=== PATIENT | female | born 1995 | race American Indian/Alaskan Native ===

== ENCOUNTER 2016-12-06 13:51 | Inpatient (IN) | payer BC, MEDICAID ==
[2016-12-06] MEDS ORDERED: LACTATED RINGERS 1,000 ML IV SCH ×2 (16:00→18:00)
[2016-12-06 16:27] LABS: Basophils % (Auto) 0.3 % (0.0-1.8); Eosinophils % (Auto) 0.7 % (0.0-4.3); Hematocrit 37.1 % (30.3-42.9); Hemoglobin 12.2 gm/dl (10.1-14.3); Mean Corpuscular HGB Conc 33 % (30-34); Mean Corpuscular Hemoglobin 28 pg (28-32); Mean Corpuscular Volume 84 fl (79-97); Platelet Count 144 K/mm3 (140-440); Red Cell Distribution Width 14.2 % (13.2-15.2)
[2016-12-06] MEDS ORDERED: PITOCin/NS 30 UNIT/500ML 30 UNITS/500 ML BAG IV SCH (17:00)
[2016-12-06] MEDS ORDERED: PITOCin/NS 20 UNIT/1000ML DRIP 20 UNITS/1,000 ML BAG IV SCH ×2 (17:00→18:00)
--- NOTE | 2016-12-06 17:21 | History and Physical Report ---
History of Present Illness Date of examination: 12/06/16 Date of admission: 12/06/16 13:51 Chief complaint: My water broke History of present illness: Early entry to care, course complicated by a breast mass and anemia. Past History Past Medical History: no pertinent history Past Surgical History: no surgical history [employer] History: herpes Family/Genetic History: none Social history: no significant social history, single - Obstetrical History Expected Date of Delivery: 12/24/16 Actual Gestation: 37 Week(s) 3 Day(s) : 3 Para: 1 Spontaneous Abortions: 1 Number of Living Children: 1 #1 Gender: Male year: 2[age][birth year] Birthweight: 2.693 kg Method of Delivery: Vaginal Gestational age at delivery: 37 Complications: none Medications and Allergies Allergies Allergy/AdvReac Type Severity Reaction Status Date / Time No Known Allergies Allergy Unverified 12/06/16 15:35 Home Medications Medication Instructions Recorded Confirmed Last Taken Type Ferrous Sulfate [Feosol] 325 mg PO BID 12/06/16 12/06/16 12/05/16 History Vitamins 1 tab PO DAILY 12/06/16 12/06/16 12/05/16 History valACYclovir [Valtrex] 500 mg PO BID 12/06/16 12/06/16 12/05/16 History Active Meds: Active Medications Butorphanol Tartrate (Stadol) 2 mg IV Q2H PRN PRN Reason: Labor Pain Lactated Ringer's (Lactated Ringers) 1,000 mls @ 125 mls/hr IV DIRECT REYNALDO Last Admin: 12/06/16 16:32 Dose: 125 mls/hr Oxytocin/Sodium Chloride (Pitocin/Ns 20 Unit/1000ml Drip) 20 units in 1,000 mls @ 0 mls/hr IV DIRECT REYNALDO PRN Reason: As Directed Oxytocin/Sodium Chloride (Pitocin/Ns 30 Unit/500ml) 30 units in 500 mls @ 2 mls /hr IV TITR REYNALDO PRN Reason: Protocol Influenza Virus Vaccine Quadrival (Fluarix Quad 5131-1124(36 Mos+)) 0.5 ml IM .ONCE ONE Stop: 12/07/16 12:01 Review of Systems All systems: negative - Vital Signs Vital signs: Vital Signs Pulse BP Pulse Ox 92 H 125/72 100 12/06/16 14:40 12/06/16 14:40 12/06/16 14:40 Temp Pulse Resp BP Pulse Ox 98.8 F 87 18 120/65 100 12/06/16 16:25 12/06/16 17:11 12/06/16 16:25 12/06/16 17:06 12/06/16 17:11 - Physical Exam Breasts: Positive: normal Cardiovascular: Regular rate Lungs: Positive: Clear to auscultation Abdomen: Positive: normal appearance, soft, normal bowel sounds Genitourinary (Female): Positive: normal external genitalia, normal perenium Vagina: Positive: normal moisture Uterus: Positive: enlarged Anus/Rectum: Positive: normal perianal skin Extremities: Positive: normal - Obstetrical FHR: category 1 Uterine Contraction Monitor Mode: External Cervical Dilatation: 3 (large amount of clear fluid pooling; forebag palpated) Cervical Effacement Percentage: 60 station: -3 Uterine Contraction Pattern: Irregular Uterine Tone Measurement Phase: Resting Uterine Contraction Intensity: Mild Results Result Diagrams: 12/06/16 15:10 Abnormal lab results 12/06/16 Range/Units 15:10 [place] % (Auto) 7.7 H (0.0-7.3) % Seg Neutrophils % 71.0 H (40.0-70.0) % All other labs normal. Assessment and Plan A: IUP @ 37 3/7 Weeks Category I Tracing PROM GBS Negative P: Follow Routine Pospartum Orders Pitocin Induction
[2016-12-06] MEDS ORDERED: XYLOCAINE 2% INFILTRATI ONE (17:25)
[2016-12-06] MEDS ORDERED: BRETHINE SUB-Q PRN (17:25)
[2016-12-06] MEDS ORDERED: ePHEDrine SULFATE IV PRN ×2 (17:25→20:56)
[2016-12-06] MEDS ORDERED: NARCAN 0.4 MG/1 ML IV PRN (17:25)
[2016-12-06] MEDS ORDERED: MINERAL OIL PO PRN (17:25)
[2016-12-06] MEDS ORDERED: ZOFRAN IV PRN (17:25)
[2016-12-06] MEDS ORDERED: BRETHINE IVP PRN (17:25)
[2016-12-06] MEDS: STADOL IV PRN ×2 (18:01→20:18)
--- NOTE | 2016-12-06 20:55 | Anesthesia Consultation ---
Anesthesia Consult and Med Hx Date of service: 12/06/16 - Airway Anesthetic Teeth Evaluation: Good ROM Head & Neck: Adequate Mental/Hyoid Distance: Adequate Mallampati Class: Class II Intubation Access Assessment: Good - Pulmonary Exam CTA: Yes - Cardiac Exam Cardiac Exam: No Murmur - Pre-Operative Health Status ASA Pre-Surgery Classification: ASA2 Proposed Anesthetic Plan: Epidural - Pulmonary Hx Asthma: No COPD: No Hx Pneumonia: No - Cardiovascular System Hx Hypertension: No - Central Nervous System Hx Seizures: No Hx Psychiatric Problems: No - Endocrine Hx Renal Disease: No Hx End Stage Renal Disease: No Hx Hypothyroidism: No Hx Hyperthyroidism: No - Hematic Hx Anemia: Yes (on Iron BID) Hx Sickle Cell Disease: No - Other Systems Hx Alcohol Use: No
[2016-12-06] MEDS ORDERED: NARCAN 2 MG/2 ML IV PRN (20:56)
[2016-12-06] MEDS ORDERED: fentaNYL-BUPIV 2 MCG/ML-0.125% 200 MCG/100 ML BAG EPIDURAL SCH (21:00)
--- NOTE | 2016-12-06 22:27 | Procedure Note ---
OB Delivery Note - Delivery Date of Delivery: 12/06/16 (2206) Surgeon: BRANDON HENAO Estimated blood loss: 200cc - Vaginal Delivery presentation: vertex Delivery position: OA Intrapartum events: mult.variable deceleratio Delivery induction: oxytocin Delivery augmentation: pitocin Delivery monitor: internal FHT, internal uterine Route of delivery: Delivery placenta: spontaneous Delivery cord: 3 umbilical vessels Episiotomy: none Delivery laceration: none Anesthesia: epidural Delivery comments: of a live 5'9 male over a intact perineum under epidural anesthesia with Apgars of 6 and 9 at 2206 on 12/06/2016. Very tight nuchal cords x3, double clamped and cut on the perineum prior to delivery of the anterior shoulder. Spontaneous delivery of placenta complete and intact with Garzon side presenting at 2209. Fundus is firm and midline located 4 below the U. Lochia is scant. - Infant A at 1 minute: 6 at 5 minutes: 9 Gender: Male (5'9)
[2016-12-06] MEDS ORDERED: BENADRYL PO PRN (22:28)
[2016-12-06] MEDS ORDERED: MILK OF MAGNESIA PO PRN (22:28)
[2016-12-06] MEDS ORDERED: LANSINOH TP PRN (22:28)
[2016-12-06] MEDS ORDERED: PHENERGAN PO PRN (22:28)
[2016-12-06] MEDS ORDERED: TUCKS PAD TP PRN (22:28)
[2016-12-06] MEDS ORDERED: DULCOLAX PR PRN (22:28)
[2016-12-06] MEDS ORDERED: SODIUM CHLORIDE FLUSH SYRINGE 10 ML IV NR (23:00)
[2016-12-06] MEDS ORDERED: PITOCin/NS 20 UNIT/1000ML DRIP 20,000 MILLIUNITS/1,000 ML BAG IV ONE (23:56)
[2016-12-07] MEDS: MOTRIN PO SCH ×4 (00:37→23:44)
--- NOTE | 2016-12-07 10:28 | Progress Note ---
Assessment and Plan A: PP Day #1 Stable P: Follow Routine Orders D/C home in the AM Plans Nexplanon for PP Contraception RTO in 6 Weeks Subjective - Subjective Date of service: 12/07/16 Interval history: Early entry to care, course complicated by a breast mass and anemia. Patient reports: appetite normal, voiding normally, pain well controlled, flatus , ambulating normally : doing well, bottle feeding Objective - Vital Signs Latest vital signs: Vital Signs Temp Pulse Resp BP BP Pulse Ox 12/07/16 08:05 98.5 F 83 19 113/63 12/07/16 05:00 18 12/07/16 04:20 98.6 F 80 18 114/56 12/07/16 00:37 16 12/07/16 00:19 98.5 F 78 18 148/92 148/92 12/06/16 23:36 80 154/91 12/06/16 23:21 86 151/97 12/06/16 23:06 73 147/91 12/06/16 23:01 92 H 81 L 12/06/16 22:59 90 100 12/06/16 22:54 92 H 100 12/06/16 22:53 87 0 L 12/06/16 22:51 86 145/88 12/06/16 22:49 89 97 12/06/16 22:45 97.9 F 90 18 140/88 100 12/06/16 22:36 92 H 140/88 12/06/16 22:30 85 100 12/06/16 22:25 88 59 L 12/06/16 21:39 92 H 156/83 12/06/16 21:34 75 143/72 12/06/16 21:32 77 148/84 12/06/16 21:31 75 146/78 12/06/16 21:29 78 147/85 12/06/16 21:27 73 143/79 12/06/16 21:25 82 142/73 12/06/16 21:23 79 146/65 12/06/16 21:21 78 134/74 12/06/16 21:19 82 123/55 12/06/16 21:17 75 134/70 12/06/16 21:10 82 143/79 12/06/16 21:08 85 136/79 12/06/16 21:06 84 142/80 12/06/16 21:05 74 146/88 12/06/16 21:01 84 149/81 12/06/16 20:58 82 151/90 12/06/16 20:55 90 139/88 12/06/16 20:34 81 100 12/06/16 20:29 93 H 100 12/06/16 20:25 80 145/81 12/06/16 20:24 80 100 12/06/16 20:22 85 0 L 12/06/16 20:19 93 H 100 12/06/16 20:14 78 100 12/06/16 20:09 83 100 12/06/16 20:04 80 100 12/06/16 19:59 79 100 12/06/16 19:54 78 100 12/06/16 19:49 87 100 12/06/16 19:44 78 100 12/06/16 19:39 84 100 12/06/16 19:34 87 100 12/06/16 19:25 95 H 100 12/06/16 19:24 76 128/72 12/06/16 19:20 90 100 12/06/16 19:19 98.6 F 82 18 128/72 100 12/06/16 19:15 83 100 12/06/16 19:10 87 100 12/06/16 19:05 83 100 12/06/16 18:47 86 99 12/06/16 17:25 84 100 12/06/16 17:20 88 99 12/06/16 17:11 87 100 12/06/16 17:06 89 120/65 100 12/06/16 17:01 95 H 100 12/06/16 16:56 83 100 12/06/16 16:51 92 H 128/73 100 12/06/16 16:46 91 H 100 12/06/16 16:41 94 H 100 12/06/16 16:36 93 H 119/63 100 12/06/16 16:31 100 H 100 12/06/16 16:29 96 H 132/72 12/06/16 16:26 87 100 12/06/16 16:25 98.8 F 96 H 18 132/72 100 12/06/16 16:21 95 H 100 12/06/16 16:20 96 H 131/70 12/06/16 16:16 101 H 100 12/06/16 16:11 84 100 12/06/16 16:06 86 100 12/06/16 16:05 86 126/69 12/06/16 16:01 85 83 L 12/06/16 16:00 82 82 L 12/06/16 15:52 85 136/77 12/06/16 15:49 91 H 100 12/06/16 15:44 101 H 100 12/06/16 15:39 91 H 99 12/06/16 15:36 79 134/74 12/06/16 15:34 90 99 12/06/16 15:29 86 100 12/06/16 15:24 86 97 12/06/16 15:23 82 130/69 12/06/16 15:19 88 100 12/06/16 15:05 89 120/69 100 12/06/16 15:00 89 100 12/06/16 14:55 91 H 100 12/06/16 14:51 89 125/71 90 12/06/16 14:50 88 100 12/06/16 14:45 98 H 100 12/06/16 14:40 94 H 125/72 100 Intake and Output 12/06/16 12/07/16 12/07/16 22:59 06:59 14:59 Intake Total 240 120 Balance 240 120 Intake: Oral 240 120 Other: Total, Intake Amount 240 120 # Voids Void 1 Weight 79.379 kg Estimated Blood Loss 200 - Exam Breasts: Present: normal Cardiovascular: Present: Regular rate Lungs: Present: Clear to auscultation, Normal air movement Abdomen: Present: normal appearance, soft, normal bowel sounds Uterus: Present: normal, firm, fundal height below umbilicus Extremities: Present: normal - Labs Labs: Abnormal lab results 12/06/16 Range/Units 15:10 [place] % (Auto) 7.7 H (0.0-7.3) % Seg Neutrophils % 71.0 H (40.0-70.0) %
--- NOTE | 2016-12-07 10:29 | Discharge Summary ---
Providers - Providers Date of Admission: 12/06/16 13:51 Date of discharge: 12/08/16 Attending physician: SAW JURADO MD Primary care physician: SAW JURADO MD Hospitalization Reason for admission: rupture of membranes Delivery: Episiotomy: none Laceration: none Other procedures: none complications: none Discharge diagnosis: IUP at term delivered baby: male Condition at discharge: Good Disposition: DC-01 TO HOME OR SELFCARE Plan - Provider Discharge Summary Activity: routine, no sex for 6 weeks, no heavy lifting 4 weeks, no strenuous exercise Diet: routine Instructions: routine Additional instructions: [] Smoking cessation referral if applicable(refer to patient education folder for contact #) [] Refer to [facility] Booklet Call your doctor immediately for: * Fever > 100.5 * Heavy vaginal bleeding ( >1 pad per hour) * Severe persistent headache * Shortness of breath * Reddened, hot, painful area to leg or breast * Drainage or odor from incision. * Keep incision clean and dry at all times and follow doctor's instructions regarding bathing/showering - Follow up plan Follow up: JOY ARDON CNM [Advanced Practice Nurse] - 6 Weeks
[2016-12-07 11:41] LABS: Hemoglobin 11.3 gm/dl (10.1-14.3)
[2016-12-07] MEDS ORDERED: Fluarix Quad 2017-2018(36 MOS+) IM ONE (12:00)
--- NOTE | 2016-12-07 13:57 | Progress Note ---
Subjective Date of service: 12/07/16 Interval history: Epidural was previously removed. No anesthetic related complaints. Objective - Constitutional Vitals: Vital Signs - 12hr 12/07/16 12/07/16 12/07/16 04:20 05:00 08:05 Temperature 98.6 F 98.5 F Pulse Rate 80 83 Respiratory 18 18 19 Rate Blood Pressure 114/56 113/63 [Left] 12/07/16 12:00 Temperature 98.6 F Pulse Rate 92 H Respiratory 19 Rate Blood Pressure 123/72 [Left] - Labs CBC & Chem 7: 12/07/16 11:08 Labs: Abnormal lab results 12/06/16 Range/Units 15:10 [place] % (Auto) 7.7 H (0.0-7.3) % Seg Neutrophils % 71.0 H (40.0-70.0) %
[2016-12-07] MEDS: NORCO 5/325 PO PRN ×2 (16:20→20:54)
[2016-12-08] MEDS: NORCO 5/325 PO PRN ×2 (05:04→12:21)
[2016-12-08] MEDS: MOTRIN PO SCH ×2 (05:04→12:21)
[2016-12-08] MEDS ORDERED: BOOSTRIX IM ONE (06:00)
[2016-12-08 10:23] VITALS: BP 123/86
== END 2016-12-08 13:20 | disposition home or self-care (01) | DRG 775 ==
LOC: LD 13:51 → OB 12-07 00:27
PROVIDERS: ADMIT Obstetrics & Gynecology; ATTEND Obstetrics & Gynecology
PROC: 10E0XZZ Delivery of Products of Conception, External Approach (ICD-10-PCS; principal; 2016-12-06)
PROC: 3E033VJ Introduction of Other Hormone into Peripheral Vein, Percutaneous Approach (ICD-10-PCS; 2016-12-06)
PROC: 3E0S3CZ (ICD-10-PCS; 2016-12-06)
PROC: 00HU33Z Insertion of Infusion Device into Spinal Canal, Percutaneous Approach (ICD-10-PCS; 2016-12-06)
PROC: 3E0234Z Introduction of Serum, Toxoid and Vaccine into Muscle, Percutaneous Approach (ICD-10-PCS; 2016-12-07)
DX: O76 Abnormality in fetal heart rate and rhythm complicating labor and delivery (principal); O42.92 Full-term premature rupture of membranes, unspecified as to length of time between rupture and onset of labor; Z3A.37 37 weeks gestation of pregnancy; Z37.0 Single live birth; O69.81X0 Labor and delivery complicated by cord around neck, without compression, not applicable or unspecified; O99.02 Anemia complicating childbirth; D64.9 Anemia, unspecified; Z23 Encounter for immunization
CPT/HCPCS: 36415; 85014; 85018; 85025; 86592; 86850; 86900; 86901; 90471; 90715; J0595; J2405; J2590; J7120

== ENCOUNTER 2017-12-05 20:42 | Outpatient (CLI) | payer BC, MEDICAID ==
[2017-12-05] MEDS ORDERED: LACTATED RINGERS 500 ML IV ONE (21:42)
[2017-12-05] MEDS ORDERED: LACTATED RINGERS 1,000 ML IV SCH (22:00)
[2017-12-06] MEDS ORDERED: BRETHINE SUB-Q ONE (00:10)
[2017-12-06] MEDS ORDERED: POLYCILLIN/NS 2 GM/100 ML 2 GM/100 ML BAG IV ONE (00:10)
[2017-12-06 00:20] LABS: Bilirubin,Urine NEG (Negative); Blood,Urine NEG (Negative); Color,Urine Yellow (Yellow); Mucus,Urine FEW /HPF; Protein,Urine <15 mg/dL mg/dL (Negative); Urobilinogen,Urine < 2.0 mg/dL (<2.0); WBC,Urine < 1.0 /HPF (0.0-6.0)
[2017-12-06 03:06] VITALS: BP 130/64
== END 2017-12-06 02:56 | disposition home or self-care (01) ==
LOC: TRG 20:42 → LD 21:01 → TRG 12-06 02:56
PROVIDERS: ATTEND Obstetrics & Gynecology
DX: O46.93 Antepartum hemorrhage, unspecified, third trimester (principal); Z3A.31 31 weeks gestation of pregnancy
CPT/HCPCS: 81001; J0290; J3105; J7120

== ENCOUNTER 2017-12-12 11:00 | Outpatient (CLI) | payer MEDICAID ==
[2017-12-12 12:26] VITALS: BP 108/59
[2017-12-12] MEDS ORDERED: LACTATED RINGERS 500 ML IV ONE (12:48)
[2017-12-12 12:57] LABS: Bilirubin,Urine NEG (Negative); Blood,Urine NEG (Negative); Color,Urine Yellow (Yellow); Mucus,Urine FEW /HPF; Protein,Urine <15 mg/dL mg/dL (Negative); Urobilinogen,Urine < 2.0 mg/dL (<2.0); WBC,Urine < 1.0 /HPF (0.0-6.0)
[2017-12-12] MEDS ORDERED: CELESTONE SOLUSPAN IM SCH (13:00)
== END 2017-12-12 13:15 | disposition home or self-care (01) ==
LOC: TRG 11:00
PROVIDERS: ATTEND Obstetrics & Gynecology
DX: O47.03 False labor before 37 completed weeks of gestation, third trimester (principal); Z3A.32 32 weeks gestation of pregnancy
CPT/HCPCS: 36415; 59025; 81001; 82731; J0702

== ENCOUNTER 2017-12-13 12:45 | Outpatient (CLI) | payer MEDICAID ==
[2017-12-13] MEDS ORDERED: CELESTONE SOLUSPAN IM ONE (12:59)
[2017-12-13 13:20] VITALS: BP 123/69
== END 2017-12-13 13:30 | disposition home or self-care (01) ==
LOC: TRG 12:45
PROVIDERS: ATTEND Obstetrics & Gynecology
DX: O47.03 False labor before 37 completed weeks of gestation, third trimester (principal); Z3A.32 32 weeks gestation of pregnancy
CPT/HCPCS: 96372; J0702

== ENCOUNTER 2020-10-21 13:49 | Emergency (ER) | payer MEDICAID ==
--- NOTE | 2020-10-21 18:55 | Emergency Department Report ---
ED General Adult HPI - General Chief complaint: Abdominal Pain Stated complaint: CP/BODY PAIN/STOMACH/NAUSEA Time Seen by Provider: 10/21/20 18:44 Source: patient Mode of arrival: Ambulatory Limitations: No Limitations - History of Present Illness Initial comments: Patient is a 25-year-old female presents emergency room complaints of nausea, vomiting, diarrhea that began 4 days ago. She is able to tolerate p.o. intake and states that she has been drinking liquids. She has associated abdominal cramping, chills, shortness of breath, body aches, fatigue, lightheadedness. She denies any fever, hematochezia, melena, hematemesis, urinary symptoms, back pain, chest pain, leg swelling. No past medical history. No allergies to medications. She has not been vaccinated for COVID-19. She has not received COVID-19 testing since becoming sick. She denies any known sick contacts. She states that she did travel to [place] couple weeks ago. - Related Data Home Medications Medication Instructions Recorded Confirmed Last Taken Ferrous Sulfate [Feosol] 325 mg PO BID 12/06/16 01/29/18 12/05/16 Vitamins 1 tab PO DAILY 12/06/16 01/29/18 2 Days Ago ~01/27/18 valACYclovir [Valtrex] 500 mg PO BID 12/06/16 01/29/18 2 Days Ago ~01/27/18 Previous Rx's Medication Instructions Recorded Last Taken Type Hyoscyamine Subl [Levsin Sl 0.125 0.125 mg SL Q6HR PRN #10 tab 10/21/20 Unknown Rx TAB] Ondansetron [Zofran Odt] 4 mg PO Q8HR PRN #10 tab.rapdis 10/21/20 Unknown Rx Allergies Allergy/AdvReac Type Severity Reaction Status Date / Time No Known Allergies Allergy Verified 10/21/20 14:18 ED Review of Systems ROS: Stated complaint: CP/BODY PAIN/STOMACH/NAUSEA Other details as noted in HPI Comment: All other systems reviewed and negative ED Past Medical Hx - Past Medical History Hx Hypertension: No Hx Congestive Heart Failure: No Hx Diabetes: No Hx Deep Vein Thrombosis: No Hx Renal Disease: No Hx Sickle Cell Disease: No Hx Seizures: No Hx Asthma: No Hx COPD: No Hx HIV: No - Social History Smoking Status: Never Smoker - Medications Home Medications: Home Medications Medication Instructions Recorded Confirmed Last Taken Type Ferrous Sulfate [Feosol] 325 mg PO BID 12/06/16 01/29/18 12/05/16 History Vitamins 1 tab PO DAILY 12/06/16 01/29/18 2 Days Ago History ~01/27/18 valACYclovir [Valtrex] 500 mg PO BID 12/06/16 01/29/18 2 Days Ago History ~01/27/18 Hyoscyamine Subl [Levsin Sl 0.125 0.125 mg SL Q6HR PRN #10 tab 10/21/20 Unknown Rx TAB] Ondansetron [Zofran Odt] 4 mg PO Q8HR PRN #10 tab.rapdis 10/21/20 Unknown Rx ED Physical Exam - General Limitations: No Limitations General appearance: alert, in no apparent distress - Head Head exam: Present: atraumatic, normocephalic - Eye Eye exam: Present: normal appearance - ENT ENT exam: Present: mucous membranes moist - Respiratory Respiratory exam: Present: normal lung sounds bilaterally. Absent: respiratory distress, wheezes, rales, rhonchi, stridor, chest wall tenderness, accessory muscle use, decreased breath sounds, prolonged expiratory - Cardiovascular Cardiovascular Exam: Present: regular rate, normal rhythm, normal heart sounds. Absent: systolic murmur, diastolic murmur, rubs, gallop - GI/Abdominal GI/Abdominal exam: Present: soft, normal bowel sounds. Absent: distended, tenderness, guarding, rebound, rigid - Neurological Exam Neurological exam: Present: alert, oriented X3 - Psychiatric Psychiatric exam: Present: normal affect, normal mood - Skin Skin exam: Present: warm, dry, intact ED Course Vital Signs 10/21/20 10/21/20 14:21 20:45 Temperature 98.1 F Pulse Rate 73 68 Respiratory 18 Rate Blood Pressure 154/90 Blood Pressure 141/71 [Right] O2 Sat by Pulse 100 100 Oximetry ED Medical Decision Making - Lab Data Result diagrams: 10/21/20 18:57 10/21/20 18:57 Lab Results 10/21/20 10/21/20 10/21/20 Range/Units 18:57 18:57 18:57 WBC 5.5 (4.5-11.0) K/mm3 RBC 4.65 (3.65-5.03) M/mm3 Hgb 12.4 (10.1-14.3) gm/dl Hct 37.9 (30.3-42.9) % MCV 82 (79-97) fl MCH 27 L (28-32) pg MCHC 33 (30-34) % RDW 15.8 H (13.2-15.2) % Plt Count 214 (140-440) K/mm3 Lymph % (Auto) 25.1 (13.4-35.0) % [place] % (Auto) 7.8 H (0.0-7.3) % Eos % (Auto) 0.7 (0.0-4.3) % Baso % (Auto) 0.9 (0.0-1.8) % Lymph # (Auto) 1.4 (1.2-5.4) K/mm3 [place] # (Auto) 0.4 (0.0-0.8) K/mm3 Eos # (Auto) 0.0 (0.0-0.4) K/mm3 Baso # (Auto) 0.0 (0.0-0.1) K/mm3 Seg Neutrophils % 65.5 (40.0-70.0) % Seg Neutrophils # 3.6 (1.8-7.7) K/mm3 Sodium 140 (137-145) mmol/L Potassium 4.4 (3.6-5.0) mmol/L Chloride 102.8 (98-107) mmol/L Carbon Dioxide 24 (22-30) mmol/L Anion Gap 18 mmol/L BUN 7 (7-17) mg/dL Creatinine 0.7 (0.6-1.2) mg/dL Estimated GFR > 60 ml/min BUN/Creatinine Ratio 10 % Glucose 72 (65-100) mg/dL Calcium 10.0 (8.4-10.2) mg/dL Total Bilirubin 0.50 (0.1-1.2) mg/dL AST 13 (5-40) units/L ALT 10 (7-56) units/L Alkaline Phosphatase 72 (35-129) units/L Total Protein 8.0 (6.3-8.2) g/dL Albumin 4.5 (3.9-5) g/dL Albumin/Globulin Ratio 1.3 % Lipase 51 (13-60) units/L HCG, Qual Negative (Negative) Urine Color (Yellow) Urine Turbidity (Clear) Urine pH (5.0-7.0) Ur Specific [place] (1.003-1.030) Urine Protein (Negative) mg/dL Urine Glucose (UA) (Negative) mg/dL Urine Ketones (Negative) mg/dL Urine Blood (Negative) Urine Nitrite (Negative) Urine Bilirubin (Negative) Urine Urobilinogen (<2.0) mg/dL Ur Leukocyte Esterase (Negative) Urine WBC (Auto) (0.0-6.0) /HPF Urine RBC (Auto) (0.0-6.0) /HPF U Epithel Cells (Auto) (0-13.0) /HPF Urine Mucus /HPF 10/21/20 Range/Units 19:28 WBC (4.5-11.0) K/mm3 RBC (3.65-5.03) M/mm3 Hgb (10.1-14.3) gm/dl Hct (30.3-42.9) % MCV (79-97) fl MCH (28-32) pg MCHC (30-34) % RDW (13.2-15.2) % Plt Count (140-440) K/mm3 Lymph % (Auto) (13.4-35.0) % [place] % (Auto) (0.0-7.3) % Eos % (Auto) (0.0-4.3) % Baso % (Auto) (0.0-1.8) % Lymph # (Auto) (1.2-5.4) K/mm3 [place] # (Auto) (0.0-0.8) K/mm3 Eos # (Auto) (0.0-0.4) K/mm3 Baso # (Auto) (0.0-0.1) K/mm3 Seg Neutrophils % (40.0-70.0) % Seg Neutrophils # (1.8-7.7) K/mm3 Sodium (137-145) mmol/L Potassium (3.6-5.0) mmol/L Chloride (98-107) mmol/L Carbon Dioxide (22-30) mmol/L Anion Gap mmol/L BUN (7-17) mg/dL Creatinine (0.6-1.2) mg/dL Estimated GFR ml/min BUN/Creatinine Ratio % Glucose (65-100) mg/dL Calcium (8.4-10.2) mg/dL Total Bilirubin (0.1-1.2) mg/dL AST (5-40) units/L ALT (7-56) units/L Alkaline Phosphatase (35-129) units/L Total Protein (6.3-8.2) g/dL Albumin (3.9-5) g/dL Albumin/Globulin Ratio % Lipase (13-60) units/L HCG, Qual (Negative) Urine Color Yellow (Yellow) Urine Turbidity Clear (Clear) Urine pH 5.0 (5.0-7.0) Ur Specific [place] 1.026 (1.003-1.030) Urine Protein <15 mg/dl (Negative) mg/dL Urine Glucose (UA) Neg (Negative) mg/dL Urine Ketones 80 (Negative) mg/dL Urine Blood Neg (Negative) Urine Nitrite Neg (Negative) Urine Bilirubin Neg (Negative) Urine Urobilinogen 2.0 (<2.0) mg/dL Ur Leukocyte Esterase Neg (Negative) Urine WBC (Auto) 1.0 (0.0-6.0) /HPF Urine RBC (Auto) 1.0 (0.0-6.0) /HPF U Epithel Cells (Auto) 5.0 (0-13.0) /HPF Urine Mucus 3+ /HPF - Radiology Data Radiology results: report reviewed Ordering Physician: USMAN LOGAN Date of Service: 10/21/20 Procedure(s): XR chest routine 2V Accession Number(s): [id number] cc: USMAN LOGAN Fluoro Time In Minutes: CHEST 2 VIEWS INDICATION / CLINICAL INFORMATION: sob, n/v/d. COMPARISON: None available. FINDINGS: SUPPORT DEVICES: None. HEART / MEDIASTINUM: No significant abnormality. LUNGS / PLEURA: No significant pulmonary or pleural abnormality. No pneumothorax. ADDITIONAL FINDINGS: No significant additional findings. IMPRESSION: 1. No acute findings. Signer Name: Kuldeep Roche MD Signed: 10/21/2020 7:51 PM Workstation Name: [id number] Transcribed By: JAIRO Dictated By: JARED ROCHE MD Electronically Authenticated By: JARED ROCHE MD Signed Date/Time: 10/21/201950 DD/ 50 TD/TT: - Medical Decision Making Patient is a 25-year-old female presents emergency room complaints of nausea, vomiting, diarrhea that began 4 days ago. She is able to tolerate p.o. intake and states that she has been drinking liquids. She has associated abdominal cramping, chills, shortness of breath, body aches, fatigue, lightheadedness. She denies any fever, hematochezia, melena, hematemesis, urinary symptoms, back pain, chest pain, leg swelling. No past medical history. No allergies to medications. She has not been vaccinated for COVID-19. She has not received COVID-19 testing since becoming sick. She denies any known sick contacts. She states that she did travel to [place] couple weeks ago. Vitals are stable. No abnormality on physical examination as documented in chart. Labs are stable. UA shows evidence of dehydration but she has no tachycardia, no hypotension, no electrolyte abnormalities, encouraged oral rehydration. CXR: 1. No acute findings. Symptoms most consistent with viral illness. Patient given prescription for medications. Advised patient Please take medication as prescribed. Increase your fluid intake over the next several days. Eat a bland liquid diet and slowly advance your diet as tolerated. Recommend for you to get outpatient COVID-19 testing and quarantine as necessary. Return to emergency room for any new or worse symptoms. Critical care attestation.: If time is entered above; I have spent that time in minutes in the direct care of this critically ill patient, excluding procedure time. ED Disposition Clinical Impression: Nausea vomiting and diarrhea, SOB (shortness of breath), Viral illness Disposition: DC-01 TO HOME OR SELFCARE Is pt being admited?: No Does the pt Need Aspirin: No Condition: Stable Instructions: Viral Illness, Adult, Abdominal Pain (ED) Additional Instructions: Please take medication as prescribed. Increase your fluid intake over the next several days. Eat a bland liquid diet and slowly advance your diet as tolerated. Recommend for you to get outpatient COVID-19 testing and quarantine as necessary. Return to emergency room for any new or worse symptoms. Prescriptions: Hyoscyamine Subl [Levsin Sl 0.125 TAB] 0.125 mg SL Q6HR PRN #10 tab PRN Reason: abd cramping/diarrhea Ondansetron [Zofran Odt] 4 mg PO Q8HR PRN #10 tab.rapdis PRN Reason: nausea/vomiting Referrals: PRIMARY CARE,MD [Primary Care Provider] - 2-3 Days Time of Disposition: 20:40 Print Language: LITHUANIAN
[2020-10-21 19:18] LABS: Basophils % (Auto) 0.9 % (0.0-1.8); Eosinophils % (Auto) 0.7 % (0.0-4.3); Hematocrit 37.9 % (30.3-42.9); Hemoglobin 12.4 gm/dl (10.1-14.3); Lymphocytes # (Auto) 1.4 K/mm3 (1.2-5.4); Lymphocytes % (Auto) 25.1 % (13.4-35.0); Mean Corpuscular HGB Conc 33 % (30-34); Mean Corpuscular Volume 82 fl (79-97); Monocytes # (Auto) 0.4 K/mm3 (0.0-0.8); Monocytes % (Auto) 7.8 % (0.0-7.3); Platelet Count 214 K/mm3 (140-440); Red Blood Count 4.65 M/mm3 (3.65-5.03); Red Cell Distribution Width 15.8 % (13.2-15.2)
[2020-10-21 19:38] LABS: Alanine Aminotransferase 10 units/L (7-56); Albumin 4.5 g/dL (3.9-5); Blood Urea Nitrogen 7 mg/dL (7-17); Hemolysis Index 3
[2020-10-21 19:41] LABS: BUN/Creatinine Ratio 10
[2020-10-21 19:48] LABS: Bilirubin,Urine NEG (Negative); Blood,Urine NEG (Negative); Color,Urine Yellow (Yellow); Mucus,Urine 3+ /HPF; Protein,Urine <15 mg/dL mg/dL (Negative)
--- NOTE | 2020-10-21 19:56 | XRay Report ---
CHEST 2 VIEWS INDICATION / CLINICAL INFORMATION: sob, n/v/d. COMPARISON: None available. FINDINGS: SUPPORT DEVICES: None. HEART / MEDIASTINUM: No significant abnormality. LUNGS / PLEURA: No significant pulmonary or pleural abnormality. No pneumothorax. ADDITIONAL FINDINGS: No significant additional findings. IMPRESSION: 1. No acute findings. Signer Name: Kuldeep Moreno MD Signed: 10/21/2020 7:51 PM Workstation Name: [id number]
[2020-10-21 20:46] VITALS: BP 141/71
--- NOTE | 2020-10-22 17:50 | Electrocardiograph Report ---
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
== END 2020-10-21 22:00 | disposition home or self-care (01) ==
LOC: ED 13:49
DX: R11.2 Nausea with vomiting, unspecified (principal); R19.7 Diarrhea, unspecified; R06.02 Shortness of breath; B34.9 Viral infection, unspecified; R53.83 Other fatigue; R42 Dizziness and giddiness
CPT/HCPCS: 36415; 71046; 80053; 81001; 83690; 84703; 85025; 93005; 99283